=== PATIENT | female | born 1940 | race Caucasian/White ===

== ENCOUNTER 2017-05-16 19:50 | Emergency (ER) | payer SELFPAY ==
--- NOTE | 2017-05-16 19:57 | UC ---
Respiratory Complaint HPI - HPI Summary HPI Summary: 76 year old female presents with complains of cough, fever, chills and confusion. I am very concerned with her 012 saturations < 95 so I will send her to the ER. - History of Current Complaint Stated Complaint: SOB,COUGH,SHAKEY Time Seen by Provider: 05/16/17 19:56 Hx Obtained From: Patient Onset/Duration: Sudden Onset Severity Initially: Moderate Severity Currently: Moderate - Allergies/Home Medications Allergies/Adverse Reactions: Allergies Allergy/AdvReac Type Severity Reaction Status Date / Time No Known Allergies Allergy Verified 05/16/17 21:30 Home Medications: Home Medications NK [No Home Medications Reported] 05/16/17 [History Confirmed 05/16/17] PMH/Surg Hx/FS Hx/Imm Hx Previously Healthy: Yes Review of Systems Constitutional: Fever, Chills Skin: Negative Eyes: Negative ENT: Negative Respiratory: Shortness Of Breath, Cough Cardiovascular: Negative Gastrointestinal: Negative Genitourinary: Negative Motor: Negative Neurovascular: Negative Musculoskeletal: Negative Neurological: Negative Psychological: Negative All Other Systems Reviewed And Are Negative: Yes Physical Exam Triage Information Reviewed: Yes Appearance: Ill-Appearing Vital Signs Reviewed: Yes Eye Exam: Normal ENT Exam: Normal Dental Exam: Normal Neck exam: Normal Neck: Positive: 1 Respiratory: Positive: Rhonchi, Wheezing Cardiovascular Exam: Normal Abdominal Exam: Normal Musculoskeletal Exam: Normal Neurological Exam: Normal Psychological Exam: Normal Skin Exam: Normal Respiratory Course/Dx - Differential Dx/Diagnosis Provider Diagnoses: FEVER. CHILL. COUGH. CONFUSION Discharge - Discharge Plan Condition: Stable Disposition: OTHER Discharge Disposition Comment: PATIENT SUGGESTED TO GO TO THE ER. Patient Education Materials: Acute Cough (ED) Referrals: Non Staff,Doctor [Primary Care Provider] - Additional Instructions: patient suggested to go to the er for respiratory distress.
[2017-05-16 20:17] VITALS: BP 154/76
== END 2017-05-16 20:24 ==
LOC: EDBD → UCCORT 19:50
DX: R50.9 Fever, unspecified (principal); R05 Cough; R41.0 Disorientation, unspecified
CPT/HCPCS: 93005; 99202; G0463